=== PATIENT | male | born 1985 ===

== ENCOUNTER 2020-10-25 01:28 | Day surgery (SDC) | payer OTHER | END 2020-10-25 23:31 | disposition home or self-care (01) | LOC: WOUND 01:28 | DX: L97.822 Non-pressure chronic ulcer of other part of left lower leg with fat layer exposed (principal); I89.0 Lymphedema, not elsewhere classified; E66.01 Morbid (severe) obesity due to excess calories; Z68.45 Body mass index [BMI] 70 or greater, adult; Z88.8 Allergy status to other drugs, medicaments and biological substances | CPT/HCPCS: G0463 ==

== ENCOUNTER 2020-11-08 00:43 | Day surgery (SDC) | payer OTHER | END 2020-11-08 22:40 | disposition home or self-care (01) | LOC: WOUND 00:43 | DX: I89.0 Lymphedema, not elsewhere classified (principal) ==

== ENCOUNTER → 2020-11-12 | Outpatient (CLI) | payer OTHER ==
[2020-11-12 19:41] LABS: BASOPHILS ABSOLUTE AUTO 0.05 K/mm3 (0.00-0.23); BASOPHILS PERCENT AUTO 1 % (0-2); EOSINOPHILS ABSOLUTE AUTO 0.29 K/mm3 (0.00-0.68); EOSINOPHILS PERCENT AUTO 4 % (0-6); Hemoglobin 12.6 g/dL (13.5-17.5); IMMATURE GRAN ABSOLUTE AUTO 0.03 K/mm3 (0.00-0.10); IMMATURE GRAN PERCENT AUTO 0 % (0-1); LYMPHOCYTES ABSOLUTE AUTO 1.62 K/mm3 (0.84-5.20); LYMPHOCYTES PERCENT AUTO 20 % (21-46); MONOCYTES ABSOLUTE AUTO 0.59 K/mm3 (0.16-1.47); MONOCYTES PERCENT AUTO 7 % (4-13); Mean Corpuscular HGB 25.9 pg (26.0-34.0); Mean Corpuscular Volume 86 fL (80-100); Mean Platelet Volume 11.8 fL (9.1-12.4); NEUTROPHILS ABSOLUTE AUTO 5.51 K/mm3 (1.96-9.15); NEUTROPHILS PERCENT AUTO 68 % (41-73); Platelet Count 253 K/mm3 (150-400); RDW Coefficient Variation 15.7 % (11.7-14.2); RDW Standard Deviation 48.8 fL (35.1-46.3); Red Blood Cell Count 4.87 M/mm3 (4.30-5.90); White Blood Cell Count 8.09 K/mm3 (4.00-11.30)
[2020-11-12 20:14] LABS: Alanine Aminotransfer (ALT/SGP 54 U/L (12-78); Albumin, Blood 3.1 g/dL (3.4-5.0); Albumin/Globulin Ratio 0.5 (0.8-1.8); Alk Phos 67 U/L (50-136); Anion Gap 4 mmol/L (6-16); Aspartate Aminotrans (AST/SGOT 42 U/L (12-37); Bilirubin, Total 0.2 mg/dL (0.1-1.0); Blood Urea Nitrogen 18 mg/dL (8-24); Bun/Creatinine Ratio 21.3 (12.0-20.0); CO2, Blood 25 mmol/L (21-32); Calcium, Blood 10.9 mg/dL (8.5-10.1); Chloride, Blood 106 mmol/L (98-108); Creatinine, Blood 0.84 mg/dL (0.60-1.20); Globulin, Blood 5.7 g/dL (2.2-4.0); Glomerular Filtration Rate >60 (60-); Glucose, Blood 106 mg/dL (70-99); Potassium, Blood 3.9 mmol/L (3.5-5.5); Sodium, Blood 135 mmol/L (136-145); Total Protein, Blood 8.8 g/dL (6.4-8.2)
== END | disposition home or self-care (01) ==
LOC: LAB SHORT 14:40 → LAB 14:40
PROVIDERS: Physician Assistant
DX: E66.01 Morbid (severe) obesity due to excess calories (principal); I10 Essential (primary) hypertension; Z68.43 Body mass index [BMI] 50.0-59.9, adult
CPT/HCPCS: 80053; 84443; 85025

== ENCOUNTER 2020-11-15 08:00 | Day surgery (SDC) | payer OTHER | END 2020-11-15 23:59 | disposition home or self-care (01) | LOC: WOUND 08:00 | DX: I89.0 Lymphedema, not elsewhere classified (principal); L97.122 Non-pressure chronic ulcer of left thigh with fat layer exposed | CPT/HCPCS: A9270 ==

== ENCOUNTER 2020-11-29 08:00 | Day surgery (SDC) | payer OTHER | END 2020-11-29 23:59 | disposition home or self-care (01) | LOC: WOUND 08:00 | DX: L97.122 Non-pressure chronic ulcer of left thigh with fat layer exposed (principal); I89.0 Lymphedema, not elsewhere classified; E66.01 Morbid (severe) obesity due to excess calories; Z88.8 Allergy status to other drugs, medicaments and biological substances; Z68.45 Body mass index [BMI] 70 or greater, adult ==

== ENCOUNTER 2020-12-13 01:59 | Day surgery (SDC) | payer OTHER ==
[2020-12-13 14:53] LABS: Prealbumin, Blood 16.6 mg/dL (20.0-40.0)
== END 2020-12-13 23:28 | disposition home or self-care (01) ==
LOC: WOUND 01:59
PROVIDERS: Nurse Practitioner Family
DX: L97.122 Non-pressure chronic ulcer of left thigh with fat layer exposed (principal); I89.0 Lymphedema, not elsewhere classified; E66.9 Obesity, unspecified; Z68.45 Body mass index [BMI] 70 or greater, adult
CPT/HCPCS: 82040; 84134

== ENCOUNTER 2021-01-03 03:15 | Day surgery (SDC) | payer OTHER | END 2021-01-03 23:12 | disposition home or self-care (01) | LOC: WOUND 03:15 | DX: L97.122 Non-pressure chronic ulcer of left thigh with fat layer exposed (principal); I89.0 Lymphedema, not elsewhere classified; Z88.8 Allergy status to other drugs, medicaments and biological substances | CPT/HCPCS: A9270 ==

== ENCOUNTER 2021-01-09 00:44 | Day surgery (SDC) | payer OTHER | END 2021-01-09 23:57 | disposition home or self-care (01) | LOC: WOUND 00:44 | DX: I89.0 Lymphedema, not elsewhere classified (principal); L97.122 Non-pressure chronic ulcer of left thigh with fat layer exposed; Z88.8 Allergy status to other drugs, medicaments and biological substances | CPT/HCPCS: A9270 ==

== ENCOUNTER 2021-01-17 00:45 | Day surgery (SDC) | payer OTHER | END 2021-01-17 23:01 | disposition home or self-care (01) | LOC: WOUND 00:45 | DX: I89.0 Lymphedema, not elsewhere classified (principal); L97.112 Non-pressure chronic ulcer of right thigh with fat layer exposed; Z88.8 Allergy status to other drugs, medicaments and biological substances ==

== ENCOUNTER 2021-02-14 01:42 | Day surgery (SDC) | payer OTHER | END 2021-02-14 23:04 | disposition home or self-care (01) | LOC: WOUND 01:42 | DX: L97.122 Non-pressure chronic ulcer of left thigh with fat layer exposed (principal); I89.0 Lymphedema, not elsewhere classified | CPT/HCPCS: A9270 ==

== ENCOUNTER → 2021-02-14 | Outpatient (CLI) | payer OTHER ==
[2021-02-14 19:33] LABS: BASOPHILS ABSOLUTE AUTO 0.05 K/mm3 (0.00-0.23); BASOPHILS PERCENT AUTO 1 % (0-2); EOSINOPHILS ABSOLUTE AUTO 0.15 K/mm3 (0.00-0.68); EOSINOPHILS PERCENT AUTO 2 % (0-6); Hematocrit 39.5 % (37.0-53.0); Hemoglobin 11.7 g/dL (13.5-17.5); IMMATURE GRAN ABSOLUTE AUTO 0.14 K/mm3 (0.00-0.10); IMMATURE GRAN PERCENT AUTO 2 % (0-1); LYMPHOCYTES ABSOLUTE AUTO 2.02 K/mm3 (0.84-5.20); LYMPHOCYTES PERCENT AUTO 23 % (21-46); MONOCYTES ABSOLUTE AUTO 0.43 K/mm3 (0.16-1.47); MONOCYTES PERCENT AUTO 5 % (4-13); Mean Corpuscular HGB 25.5 pg (26.0-34.0); Mean Corpuscular HGB Conc 29.6 g/dL (31.5-36.5); Mean Corpuscular Volume 86 fL (80-100); Mean Platelet Volume 11.9 fL (9.1-12.4); NEUTROPHILS ABSOLUTE AUTO 5.87 K/mm3 (1.96-9.15); NEUTROPHILS PERCENT AUTO 68 % (41-73); Platelet Count 268 K/mm3 (150-400); RDW Coefficient Variation 15.9 % (11.7-14.2); RDW Standard Deviation 49.9 fL (35.1-46.3); Red Blood Cell Count 4.59 M/mm3 (4.30-5.90); White Blood Cell Count 8.66 K/mm3 (4.00-11.30)
[2021-02-14 20:00] LABS: Alanine Aminotransfer (ALT/SGP 40 U/L (12-78); Albumin, Blood 2.6 g/dL (3.4-5.0); Albumin/Globulin Ratio 0.4 (0.8-1.8); Alk Phos 73 U/L (50-136); Anion Gap 5 mmol/L (6-16); Aspartate Aminotrans (AST/SGOT 26 U/L (12-37); Bilirubin, Total 0.3 mg/dL (0.1-1.0); Blood Urea Nitrogen 12 mg/dL (8-24); Bun/Creatinine Ratio 15.8 (12.0-20.0); CO2, Blood 28 mmol/L (21-32); Calcium, Blood 10.9 mg/dL (8.5-10.1); Chloride, Blood 106 mmol/L (98-108); Creatinine, Blood 0.76 mg/dL (0.60-1.20); Free Thyroxine 2.21 ng/dL (0.70-1.60); Globulin, Blood 6.2 g/dL (2.2-4.0); Glomerular Filtration Rate >60 (60-); Glucose, Blood 96 mg/dL (70-99); Potassium, Blood 3.4 mmol/L (3.5-5.5); Sodium, Blood 139 mmol/L (136-145); Total Protein, Blood 8.8 g/dL (6.4-8.2)
== END | disposition home or self-care (01) ==
LOC: LAB 18:06 → LAB SHORT 18:06
PROVIDERS: Physician Assistant
DX: R79.89 Other specified abnormal findings of blood chemistry (principal); E66.01 Morbid (severe) obesity due to excess calories; Z68.43 Body mass index [BMI] 50.0-59.9, adult
CPT/HCPCS: 80053; 84439; 84443; 85025

== ENCOUNTER 2021-04-22 01:16 | Day surgery (SDC) | payer BC | END 2021-04-22 23:17 | disposition home or self-care (01) | LOC: WOUND 01:16 | DX: L97.122 Non-pressure chronic ulcer of left thigh with fat layer exposed (principal); I89.0 Lymphedema, not elsewhere classified; M79.662 Pain in left lower leg | CPT/HCPCS: A9270; G0463 ==

== ENCOUNTER → 2021-12-10 | Outpatient (CLI) | payer BC ==
[2021-12-10 19:52] LABS: BASOPHILS ABSOLUTE AUTO 0.05 K/mm3 (0.00-0.23); BASOPHILS PERCENT AUTO 1 % (0-2); EOSINOPHILS ABSOLUTE AUTO 0.15 K/mm3 (0.00-0.68); EOSINOPHILS PERCENT AUTO 2 % (0-6); Hematocrit 49.5 % (37.0-53.0); Hemoglobin 14.6 g/dL (13.5-17.5); IMMATURE GRAN ABSOLUTE AUTO 0.03 K/mm3 (0.00-0.10); IMMATURE GRAN PERCENT AUTO 0 % (0-1); LYMPHOCYTES ABSOLUTE AUTO 1.81 K/mm3 (0.84-5.20); LYMPHOCYTES PERCENT AUTO 19 % (21-46); MONOCYTES ABSOLUTE AUTO 0.53 K/mm3 (0.16-1.47); MONOCYTES PERCENT AUTO 6 % (4-13); Mean Corpuscular HGB 24.7 pg (26.0-34.0); Mean Corpuscular HGB Conc 29.5 g/dL (31.5-36.5); Mean Corpuscular Volume 84 fL (80-100); Mean Platelet Volume 11.7 fL (9.1-12.4); NEUTROPHILS ABSOLUTE AUTO 7.03 K/mm3 (1.96-9.15); NEUTROPHILS PERCENT AUTO 73 % (41-73); Platelet Count 227 K/mm3 (150-400); RDW Coefficient Variation 16.6 % (11.7-14.2); Red Blood Cell Count 5.91 M/mm3 (4.30-5.90)
[2021-12-10 20:35] LABS: Alanine Aminotransfer (ALT/SGP 41 U/L (12-78); Albumin, Blood 3.4 g/dL (3.4-5.0); Albumin/Globulin Ratio 0.7 (0.8-1.8); Alk Phos 86 U/L (50-136); Anion Gap 5 mmol/L (6-16); Aspartate Aminotrans (AST/SGOT 22 U/L (12-37); Bilirubin, Total 0.5 mg/dL (0.1-1.0); Blood Urea Nitrogen 16 mg/dL (8-24); Bun/Creatinine Ratio 22.7 (12.0-20.0); CHOL/HDL RATIO 3.3; CO2, Blood 29 mmol/L (21-32); Chloride, Blood 105 mmol/L (98-108); Cholesterol 139 mg/dL (50-200); Creatinine, Blood 0.71 mg/dL (0.60-1.20); Free Thyroxine 1.09 ng/dL (0.70-1.60); Glomerular Filtration Rate 121 (60-); Glucose, Blood 94 mg/dL (70-99); HDL Cholesterol 42 mg/dL (>39); LDL/HDL RATIO 1.9; Low Density Lipoprotein Chol 81 mg/dL (0-110); Potassium, Blood 4.2 mmol/L (3.5-5.5); Sodium, Blood 139 mmol/L (136-145); Total Protein, Blood 8.4 g/dL (6.4-8.2); Triglycerides 79 mg/dL (30-140); Very Low Density Lipoprot Chol 16 mg/dL (6-28)
[2021-12-10 20:40] LABS: Triiodothyronine, Free 2.96 pg/mL (2.18-3.98)
== END | disposition home or self-care (01) ==
LOC: LAB SHORT 17:00 → LAB 17:00
PROVIDERS: Family Medicine
DX: I10 Essential (primary) hypertension (principal); E03.9 Hypothyroidism, unspecified
CPT/HCPCS: 80053; 80061; 84439; 84443; 84481; 85025

== ENCOUNTER 2022-12-18 21:17 | Inpatient (IN) | payer BC ==
[~2022-12-18] VITALS: Ht 167.6 cm; Wt 262.9 kg
[2022-12-18 21:46] LABS: PCO2 Arterial 69.9 mmHg (35-45); PO2 Arterial 117 mmHg (80-100)
[2022-12-18 21:47] LABS: pH Blood Arterial 7.29 (7.35-7.45)
[2022-12-18 22:51] LABS: BASOPHILS ABSOLUTE AUTO 0.03 K/mm3 (0.00-0.23); BASOPHILS PERCENT AUTO 0 % (0-2); EOSINOPHILS ABSOLUTE AUTO 0.04 K/mm3 (0.00-0.68); EOSINOPHILS PERCENT AUTO 0 % (0-6); Hematocrit 48.5 % (37.0-53.0); Hemoglobin 14.8 g/dL (13.5-17.5); IMMATURE GRAN ABSOLUTE AUTO 0.05 K/mm3 (0.00-0.10); IMMATURE GRAN PERCENT AUTO 0 % (0-1); LYMPHOCYTES ABSOLUTE AUTO 0.79 K/mm3 (0.84-5.20); LYMPHOCYTES PERCENT AUTO 7 % (21-46); MONOCYTES ABSOLUTE AUTO 0.97 K/mm3 (0.16-1.47); MONOCYTES PERCENT AUTO 9 % (4-13); Mean Corpuscular HGB 27.1 pg (26.0-34.0); Mean Corpuscular HGB Conc 30.5 g/dL (31.5-36.5); Mean Corpuscular Volume 89 fL (80-100); Mean Platelet Volume 11.3 fL (9.1-12.4); NEUTROPHILS ABSOLUTE AUTO 9.44 K/mm3 (1.96-9.15); NEUTROPHILS PERCENT AUTO 83 % (41-73); Platelet Count 174 K/mm3 (150-400); RDW Coefficient Variation 16.1 % (11.7-14.2); RDW Standard Deviation 52.3 fL (35.1-46.3); Red Blood Cell Count 5.46 M/mm3 (4.30-5.90); White Blood Cell Count 11.32 K/mm3 (4.00-11.30)
[2022-12-18 23:09] LABS: Bun/Creatinine Ratio 15.2 (12.0-20.0); Calcium, Blood 10.4 mg/dL (8.5-10.1); Creatinine, Blood 0.86 mg/dL (0.60-1.20); Potassium, Blood 4.6 mmol/L (3.5-5.5)
[2022-12-18] MEDS ORDERED: LISINOPRIL-HCT1 EAC1 PO (23:30)
[2022-12-19] VITALS (12 sets, daily range): BP systolic 110–170; BP diastolic 56–87
[2022-12-19 03:27] LABS: Influenza A, PCR NEGATIVE (NEGATIVE); Influenza B, PCR NEGATIVE (NEGATIVE); Resp Syncytial Virus, PCR NEGATIVE (NEGATIVE); SARS-Cov-2 (COVID-19) PCR, MMC NEGATIVE (NEGATIVE)
[2022-12-19 04:15] LABS: Anti-Xa UFH, PHA Monitoring <0.10 IU/mL; International Normalized Ratio 1.18; Prothrombin Time Results 12.3 Sec (9.7-11.5)
[2022-12-19 04:24] LABS: PCO2 Arterial 70.6 mmHg (35-45); PO2 Arterial 100 mmHg (80-100); pH Blood Arterial 7.29 (7.35-7.45)
--- NOTE | 2022-12-19 04:59 | NUR ---
ASSUMED CARE PT IS A&O X4; SPO2>92% ON BIPAP 20/10; MAP >65; ST 110'S. PT IS TACHYPNEIC W/ ACCESSORY MUSCLE USAGE. INITIALLY GASPING/GRUNTING WHEN FIRST ARRIVING ON UNIT; PT IS IN LESS DISTRESS AT TIME OF THIS NOTE. PT COMPLAINS OF CP THAT HAS BEEN PRESENT SINCE ADMIT; PT STATES THAT THE PAIN IS SHARP AND INCREASES IN SEVERITY WHILE INHALING. DENIES NAUSEA. HEPARIN INFUSING PER ORDER. PT ALSO COMPLAINS OF PAIN IN THE RIGHT BUTTOX THAT IS CHRONIC, STATES "I MOSTLY LIE ON MY RIGHT SIDE" (TREATING PER EMAR). SEE CHART FOR PHOTO'S OF WOUNDS.
[2022-12-19 05:51] LABS: Source, Urine Foley catheter
[2022-12-19 05:53] LABS: Appearance, Urine Clear (Clear); Bilirubin, Urine Neg (Neg); Blood, Urine Neg (Neg); Color, Urine Yellow (P-Yellow); Glucose Qualitative, Urine Neg (Neg); Ketones, Urine Neg (Neg); Leukocyte Esterase, Urine Neg (Neg); Nitrite, Urine Neg (Neg); Protein, Urine Neg (Neg); Specific Gravity, Urine 1.025 (1.003-1.022); Urobilinogen, Urine 1+ (Normal)
--- NOTE | 2022-12-19 06:54 | NUR ---
SHIFT SUMMARY NO ACUTE EVENTS SINCE LAST NOTE. PT ON BIPAP; SPO2 >92%. LOZOYA PATENT AND DRAINING TO GRAVITY.
--- NOTE | 2022-12-19 07:00 | NUR ---
ASSUMPTION OF CARE HEPARIN GTT INFUSING AT 18UNITS/KG/HR. PT DROWSY, WAKENS TO VERBAL STIMULI. HE IS ALERT AND ORIENTED. TECHNICIAN PLANT AND MAINTENANCE AT BEDSIDE. SEE SHIFT ASSESSMENT.
--- NOTE | 2022-12-19 18:02 | NUR ---
SHIFT SUMMARY PT REMAINS ALERT AND ORIENTED. HE WAS ON BIPAP 12/10 THROUGHOUT THE DAY. CURRENTLY EATING DINNER WITH 15L HFNC WITH SPO2 >94%. PT REPORTS FEELING BETTER OVERALL. SINUS TACH ON MONITOR, BP STABLE. LOZOYA PATENT AND DRAINING NURYS URINE TO GRAVITY. HEPARIN GTT STOPPED AT [address] PIMENTEL. PLAN FOR 2-VIEW CXR IN AM. CALL LIGHT WITHIN REACH.
--- NOTE | 2022-12-19 22:13 | NUR ---
ASSUMED PT CARE FROM RN ON DAYSHIFT. PT A&OX4. REPORTS FEELING SOB BUT HAS IMPROVED DURING DAYSHIFT. ABLE TO TOLERATE NC AT 13 LPM WITH O2 SATS > 92% FOR EATING AND TAKING PILLS. DENIES FEELING OF CHEST PAIN/PRESSURE. REPORTS PAIN IN RIGHT SIDE 3/10 THAT IS TOLERABLE AND HAS IMPROVED THROUGHOUT THE DAY. AFEBRILE. TOLERATING BIPAP BEING PLACED AT BEDTIME. DENIES FURTHER NEEDS. CALL LIGHT IN REACH. BED IN LOW POSITION.
[2022-12-20] VITALS: BP 143/91
[2022-12-20 04:27] VITALS: BP 143/88
--- NOTE | 2022-12-20 06:10 | NUR ---
SHIFT SUMMARY: PT O2 SATS HAVE REMAINED STABLE THROUGHOUT SHIFT ON BIPAP WITH SHORT BREAKS ON 13 LPM NC TO DRINK WATER. FULL BED BATH GIVEN, PT ABLE TO TURN IN BED WITH ASSISTANCE. PT TOLERATING LYING FLAT IN BED WITH NO INCREASED SOB. VITAL SIGNS STABLE. CALL LIGHT IN REACH. BED IN LOW POSITION.
[2022-12-20 07:37] VITALS: BP 146/92
[2022-12-20 09:38] LABS: BASOPHILS ABSOLUTE AUTO 0.02 K/mm3 (0.00-0.23); BASOPHILS PERCENT AUTO 0 % (0-2); EOSINOPHILS PERCENT AUTO 0 % (0-6); Hematocrit 44.7 % (37.0-53.0); Hemoglobin 13.1 g/dL (13.5-17.5); IMMATURE GRAN ABSOLUTE AUTO 0.04 K/mm3 (0.00-0.10); IMMATURE GRAN PERCENT AUTO 0 % (0-1); LYMPHOCYTES ABSOLUTE AUTO 0.83 K/mm3 (0.84-5.20); LYMPHOCYTES PERCENT AUTO 7 % (21-46); MONOCYTES ABSOLUTE AUTO 0.77 K/mm3 (0.16-1.47); MONOCYTES PERCENT AUTO 7 % (4-13); Mean Corpuscular HGB 26.7 pg (26.0-34.0); Mean Corpuscular HGB Conc 29.3 g/dL (31.5-36.5); Mean Corpuscular Volume 91 fL (80-100); Mean Platelet Volume 11.5 fL (9.1-12.4); NEUTROPHILS ABSOLUTE AUTO 9.51 K/mm3 (1.96-9.15); NEUTROPHILS PERCENT AUTO 85 % (41-73); Platelet Count 160 K/mm3 (150-400); RDW Coefficient Variation 15.9 % (11.7-14.2); RDW Standard Deviation 53.6 fL (35.1-46.3); White Blood Cell Count 11.17 K/mm3 (4.00-11.30)
[2022-12-20 09:57] LABS: Bun/Creatinine Ratio 24.6 (12.0-20.0); Calcium, Blood 10.6 mg/dL (8.5-10.1); Creatinine, Blood 0.73 mg/dL (0.60-1.20); Potassium, Blood 4.4 mmol/L (3.5-5.5)
--- NOTE | 2022-12-20 13:05 | NUR ---
RN/ DAY SHIFT SUMMARY MORNING SHIFT REPORT AND ASSUMPTION OF CARE COMPLETED AT THE BEDSIDE WITH THE PATIENT. THE PATIENT IS MORBIDLY OBESE AND HAS MOBILITY ISSUES. THE PATIENT WAS ASSESSED AND MEDICATION WAS PASSED WITH NO COMPLICATIONS. THE PATIENT HAS BEEN MENTIONING THAT HE IS HAVING A HEADACHE AND NUMBNESS IN HIS LEGS DUE TO THE INABLILITY TO MOVE. THE PATIENT HAS BEEN TURNED REGULARLY AND TREATED WITH POWDER TO COMBAT MOISTURE ASSOCIATED SKIN BREAK DOWN. THE PATIENT HAS SEVERAL SORES THAT ARE OPEN TO AIR AND THE WOUND CARE NURSE HAS BEEN CONSULTED. THE PATIENT HAS BEEN CHANGED TO MED STATUS. REPORT GIVEN TO THE MED FLOOR NURSE AND THE PATIENT HAS BEEN TRANSFERED TO THE MED FLOOR.
[2022-12-20 15:49] VITALS: BP 139/85
--- NOTE | 2022-12-20 16:56 | NUR ---
SHIFT SUMMARY: PT A&O X4. PT PLEASANT AND COOPERATIVE WITH ALL CARE. PT ARRIVED TO MEDICAL FLOOR @1300 ON BARIATRIC BED. PT WOUNDS CLEANED, DRIED, POWDERED, AND DRESSINGS CHANGED. PILLOWCASES PLACED UNDER ABD FOLDS. PT MAINTAINING SATS GREATER THAN 90% ON 7-8L HIGH FLOW NC. PT WEARS BIPAP WITH NAPS/SLEEP. PT STATES HE HAS HAD SOME NUMBNESS IN BILAT FEET. WILL ADDRESS WITH HOSPITALIST. ROTATING PT Q2. CALL LIGHT IN REACH. CONT BIOX ON. BED IN LOWEST POSITION. WILL CONTINUE TO MONITOR.
[2022-12-20 19:40] VITALS: BP 152/86
[2022-12-21] VITALS (35 sets, daily range): BP systolic 128–179; BP diastolic 69–115
[2022-12-21 02:14] LABS: Base Excess Venous 12.7 mmol/L; Bicarbonate Venous 31.3 mmol/L (24.0-30.0); PCO2 Venous > 105 mmHg (38-42); pH Blood Venous 7.19 (7.34-7.37)
[2022-12-21 02:40] LABS: Base Excess Venous 11.8 mmol/L; Bicarbonate Venous 30.7 mmol/L (24.0-30.0); PCO2 Venous > 105 mmHg (38-42); pH Blood Venous 7.18 (7.34-7.37)
[2022-12-21 03:50] LABS: PCO2 Arterial 101 mmHg (35-45); PO2 Arterial 75.7 mmHg (80-100)
[2022-12-21 03:52] LABS: pH Blood Arterial 7.19 (7.35-7.45)
[2022-12-21 05:37] LABS: BASOPHILS ABSOLUTE AUTO 0.02 K/mm3 (0.00-0.23); BASOPHILS PERCENT AUTO 0 % (0-2); EOSINOPHILS PERCENT AUTO 0 % (0-6); Hematocrit 47.8 % (37.0-53.0); Hemoglobin 13.7 g/dL (13.5-17.5); IMMATURE GRAN ABSOLUTE AUTO 0.06 K/mm3 (0.00-0.10); IMMATURE GRAN PERCENT AUTO 1 % (0-1); LYMPHOCYTES ABSOLUTE AUTO 0.49 K/mm3 (0.84-5.20); LYMPHOCYTES PERCENT AUTO 5 % (21-46); MONOCYTES ABSOLUTE AUTO 0.76 K/mm3 (0.16-1.47); MONOCYTES PERCENT AUTO 8 % (4-13); Mean Corpuscular HGB 26.8 pg (26.0-34.0); Mean Corpuscular HGB Conc 28.7 g/dL (31.5-36.5); Mean Corpuscular Volume 93 fL (80-100); Mean Platelet Volume 11.4 fL (9.1-12.4); NEUTROPHILS ABSOLUTE AUTO 8.75 K/mm3 (1.96-9.15); NEUTROPHILS PERCENT AUTO 87 % (41-73); Platelet Count 164 K/mm3 (150-400); RDW Coefficient Variation 15.9 % (11.7-14.2); RDW Standard Deviation 54.7 fL (35.1-46.3); Red Blood Cell Count 5.12 M/mm3 (4.30-5.90); White Blood Cell Count 10.08 K/mm3 (4.00-11.30)
--- NOTE | 2022-12-21 05:45 | NUR ---
Transfer note. Pt transferred from [facility] to [facility] at approx 2330. On arrival to unit Pt had an episode of emesis that he was able to clear. PRN anti-emetic was ordered and worked with good effect. Once nausea was resolved, Pt was placed on BiPAP. Pt was oriented and cooperative with mask placement. As the shift continued, Pt became more confused and restless. ABG orders requested resulting in critical values for both pH and CO2. RT made multiple adjustments with rechecks without improvement. Night Resident was phoned and transfer orders were given for the ICU. Pt was notified of plan. This RN questioned if the Pt would consent to be intubated, if the situation were to worsen. Pt adamantly consented that if the decision was made he would want to be intubated. Lennie Tobar was called to update on status change and room move. All questions were answered. Lennie would like staff to call for any more status changes. Pt was made aware of contact with Mom. All belongings were taken with the Pt.
--- NOTE | 2022-12-21 05:52 | NUR ---
PT TRANSFERS FROM PCU 18 TO ROOM ICU 7. REPORT RECEIVED. PT MAINTAINS COMPELLA BARIATRIC BED. OVERHEAD LIFT SYSTEM UTILIZED TO REPOSITION AND BOOST PT UP IN BED. PT INCLINED TO 35 PERCENT AND BIPAP MASK ADJUSTED TO MINIMIZE LEAK. PT DOES MAKE ATTEMPTS TO REMOVE HIS BIPAP MASK. DEMONSTRATES SOME CONFUSION. PROVIDED ONE ON ONE RN TO ASSURE PT DOES NOT REMOVE MASK. CLINICAL SITTER TO BE AT BEDSIDE FOR THE DAYSHIFT FOR PT SAFETY. LUNG SOUNDS VERY DIMINISHED IN BASES. MODERATELY DIMINISHED AT MID AREA. CLEAR IN UPPER LOBES. DRESSING CHANGE DONE TO POWERGLIDE PER PROTOCOL. LAB DRAWN AND SENT. WILL CONTINUE TO MONITOR PT, AND WILL REPORT OFF TO ONCOMING RN.
[2022-12-21 05:55] LABS: Bun/Creatinine Ratio 29.7 (12.0-20.0); Calcium, Blood 10.9 mg/dL (8.5-10.1); Creatinine, Blood 0.67 mg/dL (0.60-1.20)
[2022-12-21 07:30] LABS: Base Excess Venous 12.1 mmol/L; Bicarbonate Venous 32.1 mmol/L (24.0-30.0); PCO2 Venous 88.3 mmHg (38-42)
[2022-12-21 07:31] LABS: pH Blood Venous 7.26 (7.34-7.37)
--- NOTE | 2022-12-21 08:52 | NUR ---
SHIFT ASSESSMENT ASSUMED CARE OF PT @ 0700. PT SLEEPING BUT EASILY AROUSABLE. A&OX4, FOLLOWING COMMANDS, WEAKLY WRIGHT. PT MORBIDLY OBESE, REQUIRES 2 LIFTS FOR TURNS/ BOOSTS. CURRENTLY ON CPAP, NOT TOLERATING WELL, CONTINUES TO TRY TO REMOVE. SITTER AT BEDSIDE TO REMIND PT TO LEAVE MASK ON. SATS >90% WITH CPAP, DESATS QUICKLY TO THE MID 70'S DURING MEDICATION ADMINISTRATION THIS AM. LOZOYA CATH PATENT, DRAINING NURYS URINE. SKIN IN FAIR/POOR CONDITION, MILD BREAKDOWN IN FOLDS, POWDER APPLIED WITH TURN. SEE PICS IN CHART.
--- NOTE | 2022-12-21 18:26 | NUR ---
SHIFT SUMMARY PT REMAINS ALERT AND ORIENTED, FOLLOWING COMMANDS, ASSISTING BEST HE CAN WITH TURNS. PT GIVEN CHG BEDBATH, NEW LINENS AND DRESSING TO WOUNDS. PT DOES HAVE OCCASIONAL MOMENTS OF MILD CONFUSION BUT EASILY REDIRECTABLE. REMAINS ON BIPAP T/O DAY WITH SHORT BREAKS ON HIFLOW NC. BIPAP-AVAPS- RR-16/ FIO2 65% / E-8 / I-22-25 c SATS >90%. LOZOYA CATH DRAINING NURYS URINE WITH SEDIMENT. NO BM. NO OTHER ACUTE CHANGES TODAY.
--- NOTE | 2022-12-21 19:03 | NUR ---
ASSUMED CARE OF PT AT 1900. REPORT RECEIVED AT BEDSIDE. PT PRESENTS IN BARIATRIC BED. AWAKE, AND INTERACTIVE TO GREETING. SITTER AT BEDSIDE TO KEEP PT REMINDED TO LEAVE HIS BIPAP MASK IN PLACE. PT IN NO APPARENT DISTRESS AT THIS TIME. DURING GREETING, PT DOES TRY TO REMOVE HIS MASK AND NEEDED TO BE REMINDED TO LEAVE THIS ON. WILL REVIEW CHART AND PLAN OF CARE FOR THIS PT.
--- NOTE | 2022-12-21 20:58 | NUR ---
GOOD ORAL CARE DONE. PT PLACED TO OXIMIZER AT 15 L/M FLOW DURING THIS TIME. PT TAKES HIS PO MEDS WITH WATER. NEEDS COACHING TO NOT TRY AND SWALLOW TOO QUICKLY. PT DOES COUGH SOME WITH ONE SWALLOW. ALLOWED FOR TIME TO RECOVER PRIOR TO NEXT SWALLOW ATTEMPT. PT TRIES TO PULL AT BIPAP MASK ONCE ON, AND NEEDS TO BE FREQUENTLY REMINDED TO NOT DO THIS. CLINICAL SITTER IN ROOM TO ASSIST IN PT BEING COMPLIANT WITH BIPAP. TWO CEILING LIFT ASSIST WITH TURN AND BOOST IN BED. PT TOLERATES THIS WELL.
--- NOTE | 2022-12-21 22:22 | NUR ---
PT CONTINUES TO REQUIRE 1:1 SITTER TO KEEP BIPAP MASK IN PLACE. PT NEEDS FREQUENT REMINDERS TO NOT PULL OFF HIS MASK.
--- NOTE | 2022-12-21 23:11 | NUR ---
MEDICATED PT WITH 1 MG ATIVAN FOR INCREASE IN ANXIOUSNESS AND CONSTANT ATTEMPTS TO REMOVE BIPAP. PENDING RESULTS.
[2022-12-22] VITALS (56 sets, daily range): BP systolic 101–207; BP diastolic 66–126
[2022-12-22 06:40] LABS: BASOPHILS ABSOLUTE AUTO 0.02 K/mm3 (0.00-0.23); BASOPHILS PERCENT AUTO 0 % (0-2); EOSINOPHILS ABSOLUTE AUTO 0.02 K/mm3 (0.00-0.68); EOSINOPHILS PERCENT AUTO 0 % (0-6); Hematocrit 47.6 % (37.0-53.0); Hemoglobin 13.5 g/dL (13.5-17.5); IMMATURE GRAN ABSOLUTE AUTO 0.04 K/mm3 (0.00-0.10); IMMATURE GRAN PERCENT AUTO 1 % (0-1); LYMPHOCYTES ABSOLUTE AUTO 0.59 K/mm3 (0.84-5.20); LYMPHOCYTES PERCENT AUTO 9 % (21-46); MONOCYTES ABSOLUTE AUTO 0.59 K/mm3 (0.16-1.47); MONOCYTES PERCENT AUTO 9 % (4-13); Mean Corpuscular HGB 26.6 pg (26.0-34.0); Mean Corpuscular HGB Conc 28.4 g/dL (31.5-36.5); Mean Corpuscular Volume 94 fL (80-100); Mean Platelet Volume 12.8 fL (9.1-12.4); NEUTROPHILS ABSOLUTE AUTO 5.16 K/mm3 (1.96-9.15); NEUTROPHILS PERCENT AUTO 80 % (41-73); Platelet Count 161 K/mm3 (150-400); RDW Coefficient Variation 15.6 % (11.7-14.2); RDW Standard Deviation 53.2 fL (35.1-46.3); Red Blood Cell Count 5.07 M/mm3 (4.30-5.90); White Blood Cell Count 6.42 K/mm3 (4.00-11.30)
[2022-12-22 07:05] LABS: Albumin, Blood 2.4 g/dL (3.4-5.0); Albumin/Globulin Ratio 0.4 (0.8-1.8); Bilirubin, Total 0.5 mg/dL (0.1-1.0); Bun/Creatinine Ratio 35.8 (12.0-20.0); Calcium, Blood 11.3 mg/dL (8.5-10.1); Creatinine, Blood 0.81 mg/dL (0.60-1.20); Globulin, Blood 5.6 g/dL (2.2-4.0); Potassium, Blood 5.7 mmol/L (3.5-5.5)
--- NOTE | 2022-12-22 09:31 | NUR ---
SHIFT ASSESSMENT ASSUMED CARE OF PT @ 0700, BEDSIDE REPORT RECEIVED FROM HERIBERTO STYLES. PT MILDLY SEDATED WITH PRECEDEX FOR BIPAP COMPLIANCE, AWAKENS TO VERBAL STIMULI, ABLE TO FOLLOW SIMPLE COMMANDS, KNOWS LOCATION AND YEAR. PRECEDEX STOPPED FOR AM MEDS AND ORAL CARE. PT PLACED ON OXYMIZER DURING ORAL CARE, SATS >90% BUT RR INCREASED TO UPPER 30'S. NOW BACK ON BIPAP, TOLERATING WELL WITH PRECEDEX. LOZOYA CATH PATENT, DRAINING NURYS URINE WITH SEDIMENT. NO BM.
--- NOTE | 2022-12-22 17:44 | NUR ---
SHIFT SUMMARY PT A&OX4, FOLLOWING COMMANDS, WRIGHT. PT PROGRESSIVELY STRONGER AND MORE COHERENT T/O DAY. ABLE TO ASSIST MORE WITH TURNS AND ORAL CARE. SEEMS TO BE MORE MOTIVATED TO WORK WITH PT/OT. REMAINS ON BIPAP c FIO2 @ 45%, SATS >90%. DURING BREAKS FROM BIPAP PT ON 15LPM O2 VIA HIFLO NC. PRECEDEX OFF FOR MOST OF THE SHIFT, PT LEAVING BIPAP ON. LOZOYA CATH PATENT, DRAINING NURYS URINE. NO BM, PT REMAINS NPO.
[2022-12-23] VITALS (63 sets, daily range): BP systolic 113–194; BP diastolic 58–171
[2022-12-23 04:44] LABS: BASOPHILS ABSOLUTE AUTO 0.04 K/mm3 (0.00-0.23); BASOPHILS PERCENT AUTO 1 % (0-2); EOSINOPHILS ABSOLUTE AUTO 0.25 K/mm3 (0.00-0.68); EOSINOPHILS PERCENT AUTO 4 % (0-6); Hematocrit 46.7 % (37.0-53.0); Hemoglobin 13.3 g/dL (13.5-17.5); IMMATURE GRAN ABSOLUTE AUTO 0.03 K/mm3 (0.00-0.10); IMMATURE GRAN PERCENT AUTO 0 % (0-1); LYMPHOCYTES ABSOLUTE AUTO 0.95 K/mm3 (0.84-5.20); LYMPHOCYTES PERCENT AUTO 14 % (21-46); MONOCYTES ABSOLUTE AUTO 0.64 K/mm3 (0.16-1.47); MONOCYTES PERCENT AUTO 10 % (4-13); Mean Corpuscular HGB 26.5 pg (26.0-34.0); Mean Corpuscular HGB Conc 28.5 g/dL (31.5-36.5); Mean Corpuscular Volume 93 fL (80-100); NEUTROPHILS ABSOLUTE AUTO 4.84 K/mm3 (1.96-9.15); NEUTROPHILS PERCENT AUTO 72 % (41-73); Platelet Count 158 K/mm3 (150-400); RDW Coefficient Variation 15.5 % (11.7-14.2); RDW Standard Deviation 53.6 fL (35.1-46.3); Red Blood Cell Count 5.01 M/mm3 (4.30-5.90); White Blood Cell Count 6.75 K/mm3 (4.00-11.30)
[2022-12-23 05:49] LABS: Anion Gap Unable to Calculate mmol/L (6-16); Blood Urea Nitrogen 37 mg/dL (8-24); Bun/Creatinine Ratio 43.8 (12.0-20.0); CO2, Blood 39 mmol/L (21-32); Calcium, Blood 12.2 mg/dL (8.5-10.1); Chloride, Blood 99 mmol/L (98-108); Creatinine, Blood 0.84 mg/dL (0.60-1.20); Glomerular Filtration Rate 114 (60-); Glucose, Blood 103 mg/dL (70-99); Potassium, Blood 4.5 mmol/L (3.5-5.5); Sodium, Blood 137 mmol/L (136-145)
--- NOTE | 2022-12-23 06:27 | NUR ---
PATIENT AOX4. TOLERATING BIPAP WITHOUT PRECEDEX. BIPAP AT 45% FIO2 WHILE AWAKE, REQUIRING 60% WHEN SLEEPING. SR WITH STABLE BP. NPO. LOZOYA IN PLACE.
--- NOTE | 2022-12-23 07:52 | NUR ---
AM NOTE... ASSUMED CARE OF PT AT 0700, PT IS A&Ox3 WITH SOME CONFUSION ON WHAT [place]OWN HE IS IN AND WHAT BUILDING HE IS IN. HE IS ON BIPAP WITH AVAPS SETTING 22-25 / 12 AND 50% WITH O2 SATS>90%. L/S COARSE IN THE UPPER LOBES DIM IN THE LOWER LOBES. HE IS IN SR IN THE 90'S, 1+ EDEMA NOTED TO HIS BLE. BT PRESENT AND HYPERACTIVE, HE IS NPO D/T HIS RESPIRATORY STATUS AT THIS TIME. LOZOYA IS PATENT AND DRAINING NURYS URINE TO GRAVITY. DURING THIS AM ASSESSMENT THE PT WAS TAKEN OFF OF BIPAP AND PLACED ON 8L OXYMIZER, AFTER APROX 10MINS THE PT'S WORK OF BREATHING INCREASED TO A RR IN THE 40'S. DR. MIR WAS AT THE BEDSIDE DURING THIS TIME. THE PT WAS PLACED BACK ON BIPAP AT AVAPS SETTIN-23 / 6 AND 50%. WILL CONTINUE TO MONITOR.
[2022-12-23 08:06] LABS: PCO2 Venous 69 mmHg (38-42); pH Blood Venous 7.37 (7.34-7.37)
[2022-12-23 08:07] LABS: Bicarbonate Venous 35.6 mmol/L (24.0-30.0)
[2022-12-24] VITALS (21 sets, daily range): BP systolic 117–186; BP diastolic 64–106
[2022-12-24 04:11] LABS: BASOPHILS ABSOLUTE AUTO 0.03 K/mm3 (0.00-0.23); BASOPHILS PERCENT AUTO 1 % (0-2); EOSINOPHILS ABSOLUTE AUTO 0.25 K/mm3 (0.00-0.68); EOSINOPHILS PERCENT AUTO 4 % (0-6); Hemoglobin 13.3 g/dL (13.5-17.5); IMMATURE GRAN ABSOLUTE AUTO 0.02 K/mm3 (0.00-0.10); IMMATURE GRAN PERCENT AUTO 0 % (0-1); LYMPHOCYTES ABSOLUTE AUTO 0.74 K/mm3 (0.84-5.20); LYMPHOCYTES PERCENT AUTO 13 % (21-46); MONOCYTES ABSOLUTE AUTO 0.59 K/mm3 (0.16-1.47); MONOCYTES PERCENT AUTO 10 % (4-13); Mean Corpuscular HGB 26.5 pg (26.0-34.0); Mean Corpuscular HGB Conc 28.3 g/dL (31.5-36.5); Mean Corpuscular Volume 94 fL (80-100); Mean Platelet Volume 11.8 fL (9.1-12.4); NEUTROPHILS ABSOLUTE AUTO 4.13 K/mm3 (1.96-9.15); NEUTROPHILS PERCENT AUTO 72 % (41-73); Platelet Count 157 K/mm3 (150-400); RDW Coefficient Variation 15.5 % (11.7-14.2); RDW Standard Deviation 53.3 fL (35.1-46.3); Red Blood Cell Count 5.02 M/mm3 (4.30-5.90); White Blood Cell Count 5.76 K/mm3 (4.00-11.30)
[2022-12-24 04:40] LABS: Bun/Creatinine Ratio 43.4 (12.0-20.0); Calcium, Blood 11.8 mg/dL (8.5-10.1); Creatinine, Blood 0.65 mg/dL (0.60-1.20); Phosphorus, Blood 2.7 mg/dL (2.5-4.9); Potassium, Blood 4.3 mmol/L (3.5-5.5)
--- NOTE | 2022-12-24 05:58 | NUR ---
PATIENT BECOMING INCREASINGLY CONFUSED OVERNIGHT. AOX2, RN UNABLE TO REORIENT PATIENT. PRECEDEX NOT STARTED, BUT PATIENT REQUIRING FREQUENT REMINDERS TO NOT ADJUST BIPAP MASK AND PICK AT IV DRESSING. SR/ST WITH STABLE BP. UNABLE TO TOLERATE MORE THAN A COUPLE MINUTES ON OXYMIZER DUE TO TACHYPNEA AND INCREASED WOB. BIPAP AVAPS SETTING, 20-23/12 65% WHILE SLEEPING. DOBHOFF IN PLACE WITH TUBE FEED AT GOAL RATE. LOZOYA DRAINING TO GRAVITY.
--- NOTE | 2022-12-24 09:40 | NUR ---
TERESSA IS AWAKE AND TALKING, HE ANSWERS HIS BIRTHDAY DATE, SEVERAL TIMES WHEN ASKED TODAY'S DATE. HE IS PROMPTED WITH~THAT IS YOUR BIRTHDAY, WHAT IS TODAY'S DATE. ASKED THE MONTH, HE SAYS FEBRUARY, DAY IS 21, YEAR IS NOT ANSWERED. HE IS FRUSTRATED WITH THE MASK. HE IS TRANSITIONED TO HFT FOR MEDICATION ADMINI- STRATION, HE DOESN'T TOLERATE AND THE FIO2 AND LITERS INCREASED PER RT CLARIBEL. PT ABLE TO SWALLOW WATER, RECEIVE ORAL CARE AND MAINTAIN SATS WHILE ON HFT. HE IS TO TRANSITION BETWEEN THE TWO PER , SPOKEN TO RESP.THER. HE CONT TO MOAN WITH ANY MOVEMENT, ENCOURAGED TO ASSIST WITH REPOSITIONING HE IS ABLE TO DO SO. STASIS SKIN TO LOWER EXTREMETIES. FOLDS CLEANED AND DRIED AND POWDER APPLIED.
--- NOTE | 2022-12-24 14:19 | NUR ---
AME HAS BEEN FUNCTIONING BETWEEN THE HFNC AND THE BIPAP IN AVAPS MODE. HE DOESN'T TOLERATE THE HFNC WELL, HIS WORK OF BREATHING AND RESPIRATORY RATE BOTH ARE INCREASED, HE IS NOT REDIRECTABLE AND HE DOESN'T CALM WITH COACHING. HE IS RESTING WELL WITH GOOD EXCHANGE WHILE ON THE MASK. HIS WOUNDS WERE CLEANED AND REDRESSED PER ORDERS OF [facility]. PT TOLERATED WELL.
--- NOTE | 2022-12-24 17:28 | NUR ---
PT INCREASING IN RESTLESS AGITATION, WHEN CHANGED FROM MASK TO HFNC PT BECOMES VERY ANXIOUS, BLOOD PRESSURE INCREASING, RESP RATE INCREASING, WORK OF BREATH- ING INCREASED, CALL TO FOR ORDERS. PT RESTARTED ON PRECEDEX GTT @ 0.4MCG/KG. PT WAS HOLDING HIS BREATH AND WAS DROPPING HIS SATS TO LOW 80'S - HI 70'S. HE IS QUESTIONED ABOUT HOLDING HIS BREATH, REPLIES "I DO THAT". HE RESPONDS WELL TO POSITIVE REINFORCEMENT, HAS ADMITTEDLY BEEN "SCARED". BATH GIVEN TODAY, WOUND CARE COMPLETED, BOWEL MOVEMENT THIS SHIFT. TUBE FEEDINGS CONTINUE, STARTED ON KEE FOR WOUND THERAPY. PT ON AVAPS WITH PARAMETERS NOTED IN THE NURSE NOTIFY AND RT COMMUNICATION. HE HAS BEEN HELPFUL IN TURNING ASSIST.
--- NOTE | 2022-12-24 17:31 | NUR ---
Review of patient in rounds, several theraputic visits with patient today to men's basketball coach him on his breathing and movement. Charged his phone and got him some diversion with TV. The pulmonolgist callled his mother to update her on his prognosis and that intubation may not be sucessful. He also reviewed he may not be a canidate for a trach. Called his mother. The patients mother is known to his business writer and several icu staff for her stay inhospital with siminlar disease process. She states she is going to try to come see him tomorrow with the help of her daughter. will once again review code status. Hid body habitaus may make cpr impossible. Will continue supportive conversations with mother. Review of pt history he has had extensive wound care. kps score is 40%
[2022-12-25] VITALS (51 sets, daily range): BP systolic 107–157; BP diastolic 61–96
[2022-12-25 05:19] LABS: PO2 Arterial 62.5 mmHg (80-100); pH Blood Arterial 7.36 (7.35-7.45)
[2022-12-25 05:21] LABS: PCO2 Arterial 80.4 mmHg (35-45)
--- NOTE | 2022-12-25 06:15 | NUR ---
PATIENT CONFUSED AND AGITATED, REQUIRING PRECEDEX. AOX2, ABLE TO FOLLOW COMMANDS. SR/ST WITH STABLE BP. BIPAP AVAPS SETTING 20-23/12 70%. DOBHOFF WITH TF AT GOAL RATE. LOZOYA CATHETER IN PLACE.
[2022-12-25 09:02] LABS: Calcium, Blood 12.5 mg/dL (8.5-10.1); Creatinine, Blood 0.78 mg/dL (0.60-1.20); Potassium, Blood 4.9 mmol/L (3.5-5.5)
--- NOTE | 2022-12-25 12:03 | NUR ---
INTUBATION: 1217: 4 MG VERSED, 40 MG ETOMIDATE 1218: 200 MG SUCCINYLCHOLINE 1218: 8.0 ET TUBE PLACED BY ANESTHESIOLOGIST DR. MAZARIEGOS, + ETCO2 COLOR CHANGE, BILAT BREATH SOUNDS, 25 CM AT UPPER TEETH
[2022-12-25 12:09] LABS: Influenza A, PCR NEGATIVE (NEGATIVE); Influenza B, PCR NEGATIVE (NEGATIVE); Resp Syncytial Virus, PCR NEGATIVE (NEGATIVE); SARS-Cov-2 (COVID-19) PCR, MMC NEGATIVE (NEGATIVE)
[2022-12-25 13:44] LABS: PCO2 Arterial 56.2 mmHg (35-45); PO2 Arterial 49.1 mmHg (80-100)
--- NOTE | 2022-12-25 18:49 | NUR ---
Shift summary. Pt resting in bed, sedated and ventilated via ETT. Pt intubated this afternoon d/t increasing work of breathing/oxygen demands. Vent settings: AC/VC 18/400/20/60%. Propofol infusing at 40 mcg/kg/min. OG tube in place, clamped. Cota catheter in place, draining to gravity. Dobhoff removed after ETT/OG tube placement verified w/xray. TF remain on SB per Dr. Hammer. Second PG placed, ISMAEL. Pt vital signs stable, will continue to monitor and report off to nightshift RN.
[2022-12-25 21:20] LABS: PCO2 Arterial 62.4 mmHg (35-45); PO2 Arterial 79.8 mmHg (80-100); pH Blood Arterial 7.47 (7.35-7.45)
--- NOTE | 2022-12-25 23:01 | NUR ---
ASSUMPTION OF CARE/ASSESSMENT: ASSUMED CARE OF PT AT 1900. PT INTUBATED AND SEDATED WITH VENT SETTINGS AC/VC 18/400/20/50% AND PROPOFOL GTT @ 40 MCG/KG/HR. PT RESPONSIVE TO PAIN STIMULI BUT DOES NOT OPEN EYES. PT TOLERATING VENT WELL WITH SPO2 94<, LUNG SOUNDS ARE CLEAR IN UPPER LOBES AND DIMINISHED IN MID/LOWER LOBES. PT SR ON MONITOR WITH HR 70'S, SBP 140'S AND HEART SOUNDS ARE HARD TO HEAR D/T BODY HABITUS. PT HAS OGT IN PLACE THAT IS CLAMPED; TUBE FEEDS ON SB AND TUBE FLUSHES WELL FOR MED ADMINISTRATION. ABD MORBIDLY OBESE, SOFT AND PT NOT GRIMANCING WITH PALPATION; HYPOACTIVE BOWEL SOUNDS HEARD. LOZOYA IN PLACE AND DRAINING TO GRAVITY, URETHRAL OPENING HARD TO VISUALIZE; URINE DARK YELLOW WITH ORANGE SEDIMENTS NOTED. PT HAS EXCORIATION/WOUNDS TO ABD FOLDS/PANNUS AND BLE HAVE A LEACH DISCOLORATION TO THE ANKLE REGION THAT IS SCALING/PEELING/DRY BILATERALLY; PPP X 4. PG TO ISMAEL/MICHAEL.
[2022-12-26] VITALS (78 sets, daily range): BP systolic 124–181; BP diastolic 63–94
[2022-12-26 02:01] LABS: SARS-Cov-2 (COVID-19) PCR, MMC NEGATIVE (NEGATIVE)
[2022-12-26 03:55] LABS: Bun/Creatinine Ratio 49.3 (12.0-20.0); Calcium, Blood 12.9 mg/dL (8.5-10.1); Creatinine, Blood 0.77 mg/dL (0.60-1.20); Phosphorus, Blood 1.6 mg/dL (2.5-4.9); Potassium, Blood 4.5 mmol/L (3.5-5.5)
--- NOTE | 2022-12-26 06:10 | NUR ---
SHIFT SUMMARY: NO ACUTE CHANGES OVERNIGHT. PT REMAINS INTUBATED AND SEDATED WITH VENT SETTINGS AC/VC 18/400/20/50% AND PROPOFOL GTT @ 40 MCG/KG/HR. PROPOFOL TITRATED DOWN AND PT ABLE TO OPEN EYES TO VERBAL STIMULI AND TRACK MOVEMENTS IN ROOM. VSS THROUGHOUT THE SHIFT. [facility] CALLED THIS SHIFT AND UPDATED ON PT STATUS; STILL AWAITING OPEN BED FOR TRANSFER. PT RECEIVED A COMPLETE BED BATH AND LINEN CHANGE THIS SHIFT AND TOLERATED WELL. WILL CONTINUE TO MONITOR UNTIL ONCOMING RN ARRIVES.
--- NOTE | 2022-12-26 07:45 | NUR ---
Assumed care at 0700, bedside report received from nightshift RN. Pt in bed, sedated and ventilated via ETT. Vent settings: AC/VC 18/400/20/50%, propofol infusing at 40 mcg/kg/min. OG tube in place, clamped. NS TKO. Cota in place, draining to gravity. VS stable, will continue to monitor.
[2022-12-26 10:28] LABS: Base Excess Venous 22.4 mmol/L; Bicarbonate Venous 43.3 mmol/L (24.0-30.0); pH Blood Venous 7.49 (7.34-7.37)
[2022-12-26 10:51] LABS: Hematocrit 44.4 % (37.0-53.0); Hemoglobin 13.1 g/dL (13.5-17.5); Mean Platelet Volume 12.6 fL (9.1-12.4); Platelet Count 167 K/mm3 (150-400)
[2022-12-26 11:10] LABS: Anti-Xa UFH, PHA Monitoring 0.67 IU/mL; International Normalized Ratio 1.22; Prothrombin Time Results 12.7 Sec (9.7-11.5)
--- NOTE | 2022-12-26 18:35 | NUR ---
Shift summary. Pt remains in bed, sedated and ventilated. Vent settings changed to AC/VC 16/400/20/50%, propofol still infusing at 40 mcg/kg/min. TF resumed, at 25 ml/hr, goal 70 ml/hr. Q2 turns. PRN fentanyl added to chart for pain, see emar. No acute events this shift, see chart for further details. Will continue to monitor and report off to nightshift RN.
--- NOTE | 2022-12-26 20:22 | NUR ---
ASSUMPTION OF CARE/ASSESSMENT: ASSUMED CARE OF PT AT 1900; PT INTUBATED AND SEDATED WITH VENT SETTINGS AC/VC 16/400/20/40% AND PROPROFOL GTT @ 45 MCG/KG/HR. PT IS RESPONSIVE TO PAIN STIMULI AND HAS BEEN OBSERVED GRIMACING MORE WITH PT CARE; PRN FENTANYL PER EMAR. PT OPENS EYES INCONSISTENTLY TO VERBAL STIMULI BUT IS NOT ABLE TO FOLLOW COMMANDS OR TRACK IN ROOM. LUNG SOUNDS ARE CLEAR THROUGHOUT WITH DIM BASES; SPO2 94< AND PT TOLERATING VENT AT THIS TIME. PT SR TO ST ON MONITOR WITH HR 90-100'S AND SBP 150'S; CONTINUOUS OPERATIONS ANALYST IN PLACE. OGT PATENT AND INFUSING TUBE FEEDS AT 25 MLS/HR; HYPOACTIVE BOWEL SOUNDS IN ALL QUADRANTS, ABD OBESE, SOFT. PT HAS LOZOYA IN PLACE THAT IS DRAINING TO GRAVITY; URINE DARK YELLOW AND SEDIMENTS NOTED. SCATTERED WOUNDS IN FOLDS AND BLE; FOLLOWING WOUNDS CARE PER ORDERS. HEPARIN GTT @ 18 UNITS/KG/HR.
[2022-12-27] VITALS (7 sets, daily range): BP systolic 136–166; BP diastolic 75–94
--- NOTE | 2022-12-27 02:13 | NUR ---
PT UPDATE: [facility] CALLED JEAN PIERRE WITH BED ASSIGNMENT; PT'S MOTHER, EWA, CALLED AND UPDATED ON TRANSFER STATUS AND GIVEN PT'S ROOM ASSIGNMENT AT [facility] AND PHONE NUMBER TO UNIT. PT TRANSFERRED VIA [facility]OUND TRANSPORT WITH [facility] AND JESUS BASS ACCOMPANIED PT. PT LEFT THE UNIT @ 0200. [facility] GIVEN ALL PAPERWORK FOR [facility].
== END 2022-12-27 02:05 | disposition short-term general hospital (02) | DRG 208 ==
LOC: ER 21:17 → PCU 12-19 02:41 → ICUE 12-19 02:41 → PCU 12-19 03:12 → MEDS 12-20 12:56 → PCU 12-20 23:22 → ICUE 12-21 04:44
PROVIDERS: Internal Medicine; Internal Medicine Critical Care Medicine; Student in an Organized Health Care Education/Training Program; ADMIT Internal Medicine
PROC: 5A09557 Assistance with Respiratory Ventilation, Greater than 96 Consecutive Hours, Continuous Positive Airway Pressure (ICD-10-PCS; 2022-12-19)
PROC: 0T9B70Z Drainage of Bladder with Drainage Device, Via Natural or Artificial Opening (ICD-10-PCS; 2022-12-19)
PROC: 0DH67UZ Insertion of Feeding Device into Stomach, Via Natural or Artificial Opening (ICD-10-PCS; 2022-12-23)
PROC: 5A1945Z Respiratory Ventilation, 24-96 Consecutive Hours (ICD-10-PCS; principal; 2022-12-25)
PROC: 0BH17EZ Insertion of Endotracheal Airway into Trachea, Via Natural or Artificial Opening (ICD-10-PCS; 2022-12-25)
PROC: 4A133R1 Monitoring of Arterial Saturation, Peripheral, Percutaneous Approach (ICD-10-PCS; 2022-12-25)
DX: J96.01 Acute respiratory failure with hypoxia (principal); J69.0 Pneumonitis due to inhalation of food and vomit; Z68.45 Body mass index [BMI] 70 or greater, adult; E66.01 Morbid (severe) obesity due to excess calories; G47.33 Obstructive sleep apnea (adult) (pediatric); E78.5 Hyperlipidemia, unspecified; J96.02 Acute respiratory failure with hypercapnia; I11.0 Hypertensive heart disease with heart failure; I50.9 Heart failure, unspecified; G47.30 Sleep apnea, unspecified; J20.9 Acute bronchitis, unspecified; R79.1 Abnormal coagulation profile; L89.90 Pressure ulcer of unspecified site, unspecified stage; E87.5 Hyperkalemia; E21.0 Primary hyperparathyroidism; Z20.822 Contact with and (suspected) exposure to COVID-19; D64.9 Anemia, unspecified; Z74.01 Bed confinement status; Z79.811 Long term (current) use of aromatase inhibitors; Z79.899 Other long term (current) drug therapy; Z88.8 Allergy status to other drugs, medicaments and biological substances
CPT/HCPCS: 0241U; 31500; 36415; 36600; 71045; 80048; 80053; 81003; 82306; 82803; 82947; 83880; 83970; 84100; 84132; 84484; 85014; 85018; 85025; 85049; 85379; 85520; 85610; 85730; 93005; 93010; 93308; 93970; 94002; 94003; 94640; 94644; 94660; 94664; 94762; 96365; 96366; 96368; 97110; 97162; 97166; 97530; 99285-25; A9270; C1751; J0330; J0456; J0696; J1644; J1885; J1940; J2060; J2250; J2405; J2704; J2930; J3010; J7050; U0002